=== PATIENT | male | born 1970 | race Caucasian/White ===

== ENCOUNTER 2021-05-30 15:23 | Emergency (ER) | payer BC ==
[~2021-05-30] VITALS: Ht 182.9 cm; Wt 95.3 kg
[~2021-05-30 15:23] MED LIST: ALBUTEROL INHAL17 GM IH; CARISOPRODOL 3350 MG PO; CIPROFLOXACIN500 M1 PO; COZAAR 25 MG TA25 M1; FLEXERIL PO; FLOMAX0.4 MG PO; HYDROCODON-ACE1 EAC1 PO; IBUPROFEN 800800 M1; LIPITOR10 MG; LORTAB PO; MEDROLDOSEPACK PO; METHOCARBAMOL500 M1; MOBIC15 MG PO; PERCOCET 5-3251 EACH PO; PERCOCET 7.5-31 EACH PO; TRAMADOL 50 MG50 MG; ULTRAM 50MG TAB50 MG PO; WELLBUTRIN 75 M75 M1; ZOFRAN ODT4 MG PO
[2021-05-30] MEDS ORDERED: HYDROCODON-ACE1 EAC7 PO (18:04)
== END 2021-05-30 18:16 | disposition home or self-care (01) ==
LOC: M.ERS 15:23
DX: L02.414 Cutaneous abscess of left upper limb (principal); E78.00 Pure hypercholesterolemia, unspecified; I10 Essential (primary) hypertension; F17.210 Nicotine dependence, cigarettes, uncomplicated; Z88.1 Allergy status to other antibiotic agents; Z79.899 Other long term (current) drug therapy